=== PATIENT | male | born 1955 | race American Indian/Alaskan Native ===

== ENCOUNTER 2019-02-27 13:43 | Inpatient (IN) | payer MEDICARE ==
--- NOTE | 2019-02-27 14:02 | Emergency Department Report ---
Blank Doc - Documentation Documentation: This is a 63-year-old male that presents with chest pain, SOB, and bilateral l egs swelling. HX of CHF. This initial assessment/diagnostic orders/clinical plan/treatment(s) is/are subject to change based on patient's health status, clinical progression and re- assessment by fellow clinical providers in the ED. Further treatment and workup at subsequent clinical providers discretion. Patient/guardians urged not to elope from the ED as their condition may be serious if not clinically assessed and managed. Initial orders include: 1- Patient sent to [facility] for further evaluation and treatment 2- EKG 3- labs 4- CXR
--- NOTE | 2019-02-27 15:08 | XRay Report ---
CHEST XRAY, 2 VIEWS: History: Chest pain. Findings: There is mild cardiomegaly. A 2-lead pacemaker device is in position. Pulmonary vessels are within normal limits. The lungs are clear and fully expanded. No infiltrate, pleural effusion or pneumothorax. Normal thoracic cage. IMPRESSION: Cardiomegaly.
[2019-02-27 15:24] LABS: Basophils # (Auto) 0.1 K/mm3 (0.0-0.1); Basophils % (Auto) 0.8 % (0.0-1.8); Eosinophils # (Auto) 0.2 K/mm3 (0.0-0.4); Eosinophils % (Auto) 3.4 % (0.0-4.3); Hematocrit 44.3 % (35.5-45.6); Hemoglobin 14.4 gm/dl (11.8-15.2); Lymphocytes # (Auto) 1.5 K/mm3 (1.2-5.4); Lymphocytes % (Auto) 23.8 % (13.4-35.0); Mean Corpuscular HGB Conc 32 % (32-34); Mean Corpuscular Volume 90 fl (84-94); Monocytes # (Auto) 0.5 K/mm3 (0.0-0.8); Monocytes % (Auto) 7.7 % (0.0-7.3); Red Blood Count 4.91 M/mm3 (3.65-5.03)
[2019-02-27 15:28] LABS: Red Cell Distribution Width 20.8 % (13.2-15.2)
[2019-02-27 15:34] LABS: INR 1.2 (0.87-1.13)
[2019-02-27 15:35] LABS: Partial Thromboplastin Time 26.2 Sec. (24.2-36.6)
[2019-02-27 16:00] LABS: Calcium 9.6 mg/dL (8.4-10.2)
[2019-02-27 16:06] LABS: Platelet Count 195 K/mm3 (140-440)
--- NOTE | 2019-02-27 16:22 | Emergency Department Report ---
ED General Adult HPI - General Chief complaint: Dyspnea/Respdistress Stated complaint: SOB/SWELLING OF LEGS Time Seen by Provider: 02/27/19 14:00 Source: patient Mode of arrival: Ambulatory Limitations: No Limitations - History of Present Illness Initial comments: A 63-year-old male with a history of CHF with an ejection fraction of 10%, chronic kidney disease, and obstructive sleep apnea presents with a complaint of shortness of breath. Patient states he's had worsening shortness of breath for the past few days. Patient states that he was last admitted 2 months ago for CHF exacerbation in [place]. Patient states he's been taken off of hospice the rapy regarding his CHF. Patient states he talked to his needle valve operator out of town and told to come here. Patient states that he has been intermittently compliant with his torsemide therapy. Patient denies any chest pain to current time. - Related Data Home Medications Medication Instructions Recorded Confirmed Last Taken Albuterol Sulfate 1.25 mg IH Q4H 02/27/19 02/27/19 Unknown LORazepam [Ativan] 0.5 mg PO QPM 02/27/19 02/27/19 Unknown Metoprolol Succinate [Kapspargo 25 mg PO DAILY 02/27/19 02/27/19 Unknown Sprinkle] Sennosides/Docusate Sodium 1 - 2 each PO BID PRN 02/27/19 02/27/19 Unknown [Docusate Sodium-Senna Tablet] Tamsulosin [Flomax] 0.4 mg PO DAILY 02/27/19 02/27/19 Unknown Temazepam [Restoril] 15 mg PO QHS PRN 02/27/19 02/27/19 Unknown Torsemide [Demadex] 40 mg PO BID 02/27/19 02/27/19 Unknown Trazodone HCl 150 mg PO QHS 02/27/19 02/27/19 Unknown oxyCODONE [roxiCODONE] 2.5 - 5 mg PO Q4HR PRN 02/27/19 02/27/19 Unknown Allergies Allergy/AdvReac Type Severity Reaction Status Date / Time carvedilol AdvReac Unknown Verified 02/27/19 13:47 ED Review of Systems ROS: Stated complaint: SOB/SWELLING OF LEGS Other details as noted in HPI Constitutional: denies: chills, fever Eyes: denies: eye pain, eye discharge, vision change ENT: denies: ear pain, throat pain Respiratory: SOB at rest. denies: cough, shortness of breath, wheezing Cardiovascular: denies: chest pain, palpitations Endocrine: no symptoms reported Gastrointestinal: denies: abdominal pain, nausea, diarrhea Genitourinary: denies: urgency, dysuria Musculoskeletal: denies: back pain, joint swelling, arthralgia Skin: denies: rash, lesions Neurological: denies: headache, weakness, paresthesias Psychiatric: denies: anxiety, depression Hematological/Lymphatic: denies: easy bleeding, easy bruising ED Past Medical Hx - Past Medical History Hx Hypertension: Yes Hx Congestive Heart Failure: Yes Hx COPD: Yes Additional medical history: neuropathy - Surgical History Past Surgical History?: No - Social History Smoking Status: Former Smoker Substance Use Type: None - Medications Home Medications: Home Medications Medication Instructions Recorded Confirmed Last Taken Type Albuterol Sulfate 1.25 mg IH Q4H 02/27/19 02/27/19 Unknown History LORazepam [Ativan] 0.5 mg PO QPM 02/27/19 02/27/19 Unknown History Metoprolol Succinate [Kapspargo 25 mg PO DAILY 02/27/19 02/27/19 Unknown History Sprinkle] Sennosides/Docusate Sodium 1 - 2 each PO BID PRN 02/27/19 02/27/19 Unknown History [Docusate Sodium-Senna Tablet] Tamsulosin [Flomax] 0.4 mg PO DAILY 02/27/19 02/27/19 Unknown History Temazepam [Restoril] 15 mg PO QHS PRN 02/27/19 02/27/19 Unknown History Torsemide [Demadex] 40 mg PO BID 02/27/19 02/27/19 Unknown History Trazodone HCl 150 mg PO QHS 02/27/19 02/27/19 Unknown History oxyCODONE [roxiCODONE] 2.5 - 5 mg PO Q4HR PRN 02/27/19 02/27/19 Unknown History ED Physical Exam - General Limitations: No Limitations General appearance: alert, other (awake; mildly uncomfortable) - Head Head exam: Present: atraumatic, normocephalic - Eye Eye exam: Present: normal appearance - ENT ENT exam: Present: mucous membranes moist - Neck Neck exam: Present: normal inspection - Respiratory Respiratory exam: Present: rales (in bibasilar region). Absent: respiratory distress - Cardiovascular Cardiovascular Exam: Present: regular rate, normal rhythm. Absent: systolic murmur, diastolic murmur, rubs, gallop - GI/Abdominal GI/Abdominal exam: Present: soft, normal bowel sounds - Rectal Rectal exam: Present: deferred - Extremities Exam Extremities exam: Present: normal inspection - Back Exam Back exam: Present: normal inspection - Neurological Exam Neurological exam: Present: alert, oriented X3, CN II-XII intact, normal gait - Psychiatric Psychiatric exam: Present: normal affect, normal mood - Skin Skin exam: Present: warm, dry, intact, normal color. Absent: rash ED Course Vital Signs 02/27/19 02/27/19 02/27/19 13:57 15:24 16:00 Temperature 97.5 F L Pulse Rate 106 H 85 91 H Pulse Rate [ Anterior Bilateral Throughout] Respiratory 16 25 H 23 Rate Respiratory Rate [Anterior Bilateral Throughout] Blood Pressure 120/90 Blood Pressure 125/90 [Left] O2 Sat by Pulse 100 95 Oximetry 02/27/19 02/27/19 02/27/19 17:00 17:55 18:01 Temperature Pulse Rate 96 H 90 Pulse Rate [ Anterior Bilateral Throughout] Respiratory 16 20 20 Rate Respiratory Rate [Anterior Bilateral Throughout] Blood Pressure 137/101 Blood Pressure 146/101 [Left] O2 Sat by Pulse 99 100 98 Oximetry 02/27/19 02/27/19 18:10 18:26 Temperature Pulse Rate Pulse Rate [ 91 H 90 Anterior Bilateral Throughout] Respiratory Rate Respiratory 99 H 20 Rate [Anterior Bilateral Throughout] Blood Pressure Blood Pressure [Left] O2 Sat by Pulse Oximetry ED Medical Decision Making - Lab Data Result diagrams: 02/27/19 14:03 02/27/19 15:26 - EKG Data -: EKG Interpreted by Ak EKG shows normal: sinus rhythm Rate: normal - EKG Data Interpretation: nonspecific ST-T wave aakash, other (NO evidence of STEMI) - Medical Decision Making Patient received albuterol, Lasix and 0.4 nitroglycerin. Patient to be admitted to the hospitalist service for continued management and treatment. - Differential Diagnosis CHF exacerbation; Pneumonia; Arryhtmia; STEMI; NSTEMI Critical care attestation.: If time is entered above; I have spent that time in minutes in the direct care of this critically ill patient, excluding procedure time. ED Disposition Clinical Impression: Acute exacerbation of CHF (congestive heart failure) Disposition: OP ADMIT IP TO THIS HOSP Is pt being admited?: Yes Condition: Fair Referrals: LEO DENISE MD [Primary Care Provider] - 3-5 Days Time of Disposition: 19:46
[2019-02-27] MEDS ORDERED: NITROSTAT SL ONE (17:37)
[2019-02-27] MEDS ORDERED: LASIX IV ONE (17:37)
[2019-02-27] MEDS ORDERED: PROVENTIL IH ONE (17:37)
[2019-02-27] MEDS ORDERED: SODIUM CHLORIDE FLUSH SYRINGE 10 ML IV PRN (20:25)
[2019-02-27] MEDS ORDERED: NITROSTAT SL PRN (20:25)
[2019-02-27] MEDS ORDERED: PROVENTIL IH PRN (20:25)
[2019-02-27] MEDS ORDERED: TYLENOL PO PRN (20:25)
[2019-02-27] MEDS ORDERED: ZOFRAN IV PRN (20:25)
[2019-02-27] MEDS ORDERED: RESTORIL PO PRN (20:30)
[2019-02-27] MEDS ORDERED: PERCOCET 5/325 PO PRN (20:31)
--- NOTE | 2019-02-27 21:16 | History and Physical Report ---
History of Present Illness Date of examination: 02/27/19 Date of admission: 02/27/2019 Chief complaint: Shortness of breath, bilateral lower extremity edema History of present illness: 63-year-old -[place]ine[place] male with history of PEG, systolic heart failure with EF of 10%, CK D, BPH, COPD, HTN who presents to the [facility] ED with complaints of shortness of breath. He states that he is been in [place] for the past 2 weeks. He is originally from [facility] and is here visiting his son. He complains of progressively worsening shortness of breath for the past week. He also noticed that his lower leg swelling has worsened. Patient states that he was admitted approximately 2 months ago at a facility in [facility] and was told that his ejection fraction is 10%. He was given torsemide but admits to being noncompliant with treatment. Denies: fever, n/v/d, chest pain Past History Past Medical History: COPD, heart failure (EF 10%), hypertension, other (neuropathy; PEG ) Past Surgical History: Other (pacemaker placement) Social history: lives with family (visit and from [facility], staying with son in [facility]; former smoker) Family history: no significant family history Medications and Allergies Allergies Allergy/AdvReac Type Severity Reaction Status Date / Time carvedilol AdvReac Unknown Verified 02/27/19 13:47 Home Medications Medication Instructions Recorded Confirmed Last Taken Type Albuterol Sulfate 1.25 mg IH Q4H 02/27/19 02/27/19 Unknown History LORazepam [Ativan] 0.5 mg PO QPM 02/27/19 02/27/19 Unknown History Metoprolol Succinate [Kapspargo 25 mg PO DAILY 02/27/19 02/27/19 Unknown History Sprinkle] Sennosides/Docusate Sodium 1 - 2 each PO BID PRN 02/27/19 02/27/19 Unknown History [Docusate Sodium-Senna Tablet] Tamsulosin [Flomax] 0.4 mg PO DAILY 02/27/19 02/27/19 Unknown History Temazepam [Restoril] 15 mg PO QHS PRN 02/27/19 02/27/19 Unknown History Torsemide [Demadex] 40 mg PO BID 02/27/19 02/27/19 Unknown History Trazodone HCl 150 mg PO QHS 02/27/19 02/27/19 Unknown History oxyCODONE [roxiCODONE] 2.5 - 5 mg PO Q4HR PRN 02/27/19 02/27/19 Unknown History Active Meds: Active Medications Acetaminophen (Tylenol) 650 mg PO Q4H PRN PRN Reason: Pain MILD(1-3)/Fever >100.5/GUEVARA Albuterol (Proventil) 2.5 mg IH Q3HRT PRN PRN Reason: Shortness Of Breath Albuterol/Ipratropium (Duoneb *Not For Prn Use*) 1 ampul IH Q6HRT MOISES Budesonide (Pulmicort) 0.5 mg IH Q12HRT MOISES Docusate Sodium (Colace) 100 mg PO BID MOISES Enoxaparin Sodium (Lovenox) 40 mg SUB-Q QDAY MOISES Furosemide (Lasix) 40 mg IV 0600,1800 MOISES Lorazepam (Ativan) 0.5 mg PO QPM MOISES Metoprolol Succinate (Toprol Xl) 25 mg PO QDAY MOISES Nitroglycerin (Nitrostat) 0.4 mg SL .Q5MIN PRN PRN Reason: Chest Pain Ondansetron HCl (Zofran) 4 mg IV Q8H PRN PRN Reason: Nausea And Vomiting Oxycodone/Acetaminophen (Percocet 5/325) 1 tab PO Q6H PRN PRN Reason: Pain, Moderate (4-6) Sodium Chloride (Sodium Chloride Flush Syringe 10 Ml) 10 ml IV BID MOISES Sodium Chloride (Sodium Chloride Flush Syringe 10 Ml) 10 ml IV PRN PRN PRN Reason: LINE FLUSH Tamsulosin HCl (Flomax) 0.4 mg PO DAILY MOISES Temazepam (Restoril) 15 mg PO QHS PRN PRN Reason: Sleep Review of Systems All systems: negative (viewed and no additional remarkable complaints except as noted below) Cardiovascular: edema (bilateral lower extremity pitting edema), shortness of breath, dyspnea on exertion Respiratory: shortness of breath, dyspnea on exertion Exam - Physical Exam Narrative exam: Physical exam General appearance: Present: No acute distress, alert and oriented 3, older adult -[place]ine[place] male - EENT Eyes: Present: PERRL, EOM intact ENT: hearing intact, normal dentition - Neck Neck: Present: supple, normal ROM - Respiratory Respiratory effort: Non-labored Respiratory: Bibasilar crackles - Cardiovascular Heart rate: 91 (bpm) Rhythm: regular Heart Sounds: Present: S1 & S2. Absent: rub, click - Extremities Extremities: no ischemia, pulses intact, abnormal (bilateral lower extremity edema) - Peripheral Assessment Peripheral Pulses: within normal limits - Abdominal General gastrointestinal: soft, non-tender, normal bowel sounds - Integumentary Integumentary: Present: warm, dry - Musculoskeletal Musculoskeletal: Normal gait, minimal lower extremities -Neurological Neurological: CNII-XII intact - Psychiatric Psychiatric: cooperative - Constitutional Vitals: Temp Pulse Resp BP Pulse Ox 97.5 F L 93 H 19 137/95 98 02/27/19 13:57 02/27/19 19:01 02/27/19 19:01 02/27/19 19:01 02/27/19 18:01 Results - Labs CBC & Chem 7: 02/27/19 14:03 02/27/19 15:26 Labs: Laboratory Last Values WBC 6.2 K/mm3 (4.5-11.0) 02/27/19 14:03 RBC 4.91 M/mm3 (3.65-5.03) 02/27/19 14:03 Hgb 14.4 gm/dl (11.8-15.2) 02/27/19 14:03 Hct 44.3 % (35.5-45.6) 02/27/19 14:03 MCV 90 fl (84-94) 02/27/19 14:03 MCH 29 pg (28-32) 02/27/19 14:03 MCHC 32 % (32-34) 02/27/19 14:03 RDW 20.8 % (13.2-15.2) H 02/27/19 14:03 Plt Count 195 K/mm3 (140-440) 02/27/19 14:03 Lymph % (Auto) 23.8 % (13.4-35.0) 02/27/19 14:03 [place] % (Auto) 7.7 % (0.0-7.3) H 02/27/19 14:03 Eos % (Auto) 3.4 % (0.0-4.3) 02/27/19 14:03 Baso % (Auto) 0.8 % (0.0-1.8) 02/27/19 14:03 Lymph # 1.5 K/mm3 (1.2-5.4) 02/27/19 14:03 [place] # 0.5 K/mm3 (0.0-0.8) 02/27/19 14:03 Eos # 0.2 K/mm3 (0.0-0.4) 02/27/19 14:03 Baso # 0.1 K/mm3 (0.0-0.1) 02/27/19 14:03 Seg Neutrophils % 64.3 % (40.0-70.0) 02/27/19 14:03 Seg Neutrophils # 4.0 K/mm3 (1.8-7.7) 02/27/19 14:03 PT 14.9 Sec. (12.2-14.9) 02/27/19 14:03 INR 1.20 (0.87-1.13) H 02/27/19 14:03 APTT 26.2 Sec. (24.2-36.6) 02/27/19 14:03 Sodium 138 mmol/L (137-145) 02/27/19 15:26 Potassium 5.3 mmol/L (3.6-5.0) H 02/27/19 15:26 Chloride 102.3 mmol/L (98-107) 02/27/19 15:26 Carbon Dioxide 23 mmol/L (22-30) 02/27/19 15:26 18 mmol/L 02/27/19 15:26 BUN 25 mg/dL (9-20) H 02/27/19 15:26 1.4 mg/dL (0.8-1.5) 02/27/19 15:26 Estimated GFR 51 ml/min 02/27/19 15:26 18 % 02/27/19 15:26 Glucose 95 mg/dL (75-100) 02/27/19 15:26 Calcium 9.6 mg/dL (8.4-10.2) 02/27/19 15:26 0.023 ng/mL (0.00-0.029) 02/27/19 16:40 NT-Pro-B Natriuret Pep 24314 pg/mL (0-900) H 02/27/19 15:26 - Imaging and Cardiology EKG: image reviewed (sinus rhythm 91 bpm) Chest x-ray: report reviewed (There is mild cardiomegaly. A 2-lead pacemaker device is in position. ), image reviewed Assessment and Plan Assessment and plan: 63-year-old -[place] male with history of PEG, systolic heart failure with EF of 10%, CK D, BPH, COPD, HTN who is noncompliant with medications who presents to the [facility] ED with complaints of shortness of breath. CXR did not show any acute cardiopulmonary abnormalities. EKG unremarkable for acute ischemic [place] [id number]. Will admit to telemetry. Acute exacerbation of systolic heart failure with ejection fraction 10% Pacemaker in situ COPD CKD 3 ??MARTIN Hyperkalemia Elevated BNP Hypertension BPH Plan: Continue supportive care Continuous telemetry monitoring Cardiology consult IV Lasix 40 mg twice a day Albuterol when necessary Schedule Pulmicort Monitor BP Metoprolol 25 mg daily ASA 81mg Continue Flomax Monitor electrolytes; replete as needed Patient profile hyperkalemic at 5.3, he received IV Lasix 40 mg in ED; will monitor potassium for now no further intervention at this time Monitor renal function Consult nephrology DVT PPX on Lovenox Advance Directives: No VTE prophylaxis?: Chemical Plan of care discussed with patient/family: Yes
[2019-02-27] MEDS: SODIUM CHLORIDE FLUSH SYRINGE 10 ML IV SCH (22:00)
[2019-02-27] MEDS: COLACE PO SCH (22:00)
[2019-02-28] MEDS: DUONEB *Not for PRN Use IH SCH ×4 (01:16→21:18)
[2019-02-28] MEDS: LASIX IV SCH ×2 (06:07→17:07)
[2019-02-28 06:41] LABS: Basophils # (Auto) 0.1 K/mm3 (0.0-0.1); Basophils % (Auto) 1.3 % (0.0-1.8); Eosinophils # (Auto) 0.2 K/mm3 (0.0-0.4); Eosinophils % (Auto) 2.9 % (0.0-4.3); Hematocrit 41.6 % (35.5-45.6); Hemoglobin 13.7 gm/dl (11.8-15.2); Lymphocytes # (Auto) 1.8 K/mm3 (1.2-5.4); Lymphocytes % (Auto) 22.2 % (13.4-35.0); Mean Corpuscular HGB Conc 33 % (32-34); Mean Corpuscular Volume 89 fl (84-94); Monocytes # (Auto) 0.6 K/mm3 (0.0-0.8); Platelet Count 224 K/mm3 (140-440); Red Blood Count 4.67 M/mm3 (3.65-5.03)
[2019-02-28 06:47] LABS: Red Cell Distribution Width 20.9 % (13.2-15.2)
[2019-02-28 07:04] LABS: BUN/Creatinine Ratio 17; Blood Urea Nitrogen 24 mg/dL (9-20); Calcium 9.3 mg/dL (8.4-10.2); Hemolysis Index 8
[2019-02-28] MEDS: PULMICORT IH SCH ×2 (08:51→21:18)
[2019-02-28] MEDS ORDERED: METOPROLOL SUCCINATE 25 MG PO SCH (10:00)
[2019-02-28] MEDS: LOVENOX SUB-Q SCH (10:07)
[2019-02-28] MEDS: SODIUM CHLORIDE FLUSH SYRINGE 10 ML IV SCH (10:08)
[2019-02-28] MEDS: BABY ASPIRIN PO SCH (10:08)
[2019-02-28] MEDS: TOPROL XL PO SCH (10:08)
[2019-02-28] MEDS: FLOMAX PO SCH (10:08)
[2019-02-28] MEDS: COLACE PO SCH ×2 (10:08→23:19)
--- NOTE | 2019-02-28 10:26 | Consultation ---
History of Present Illness Consult date: 02/28/19 Consult reason: congestive heart failure History of present illness: Mr Ramos is a 63-year old male whom is visiting from [place]. Patient gives a h istory of nonischemic cardiomyopathy with an ejection fraction of 10%. He has an indwelling cardiac defibrillator. Patient presents with worsening shortness of breath, admitted with decompensated heart failure. Patient reports he started experiencing low back pain, similar to prior symptoms of acute renal failure therefore he stopped taking his home Torsemide a few days ago. He admits to 10- 15lb weight gain. Patient denies chest pain, denies palpitations and denies AICD discharge. A cardiac consultation has been requested for further management of CHF. Past History Past Medical History: COPD, heart failure (EF 10%), hypertension, other (neuropathy; PEG ) Past Surgical History: Other (AICD) Social history: lives with family (visit and from [facility], staying with son in [facility]; former smoker) Family history: no significant family history Medications and Allergies Allergies Allergy/AdvReac Type Severity Reaction Status Date / Time carvedilol AdvReac Unknown Verified 02/27/19 13:47 Home Medications Medication Instructions Recorded Confirmed Last Taken Type Albuterol Sulfate 1.25 mg IH Q4H 02/27/19 02/27/19 Unknown History LORazepam [Ativan] 0.5 mg PO QPM 02/27/19 02/27/19 Unknown History Metoprolol Succinate [Kapspargo 25 mg PO DAILY 02/27/19 02/27/19 Unknown History Sprinkle] Sennosides/Docusate Sodium 1 - 2 each PO BID PRN 02/27/19 02/27/19 Unknown Hist ory [Docusate Sodium-Senna Tablet] Tamsulosin [Flomax] 0.4 mg PO DAILY 02/27/19 02/27/19 Unknown History Temazepam [Restoril] 15 mg PO QHS PRN 02/27/19 02/27/19 Unknown History Torsemide [Demadex] 40 mg PO BID 02/27/19 02/27/19 Unknown History Trazodone HCl 150 mg PO QHS 02/27/19 02/27/19 Unknown History oxyCODONE [roxiCODONE] 2.5 - 5 mg PO Q4HR PRN 02/27/19 02/27/19 Unknown History Active Meds: Active Medications Acetaminophen (Tylenol) 650 mg PO Q4H PRN PRN Reason: Pain MILD(1-3)/Fever >100.5/GUEVARA Albuterol (Proventil) 2.5 mg IH Q3HRT PRN PRN Reason: Shortness Of Breath Albuterol/Ipratropium (Duoneb *Not For Prn Use*) 1 ampul IH Q6HRT [facility] Last Admin: 02/28/19 08:51 Dose: 1 ampul Documented by: Aspirin (Baby Aspirin) 81 mg PO QDAY [facility] Last Admin: 02/28/19 10:08 Dose: 81 mg Documented by: Budesonide (Pulmicort) 0.5 mg IH Q12HRT [facility]1983 Last Admin: 02/28/19 08:51 Dose: 0.5 mg Documented by: Docusate Sodium (Colace) 100 mg PO BID [facility] Last Admin: 02/28/19 10:08 Dose: 100 mg Documented by: Enoxaparin Sodium (Lovenox) 40 mg SUB-Q QDAY [facility] Last Admin: 02/28/19 10:07 Dose: 40 mg Documented by: Furosemide (Lasix) 40 mg IV 0600,1800 [facility] Last Admin: 02/28/19 06:07 Dose: 40 mg Documented by: Milrinone Lactate/Dextrose (Milrinone-D5w 20 Mg/100 Ml) 20 mg in 100 mls @ 10.53 mls/hr IV TITR [facility]1983 Stop: 03/03/19 08:59 Lorazepam (Ativan) 0.5 mg PO QPM [facility] Metoprolol Succinate (Toprol Xl) 25 mg PO QDAY [facility] Last Admin: 02/28/19 10:08 Dose: 25 mg Documented by: Nitroglycerin (Nitrostat) 0.4 mg SL .Q5MIN PRN PRN Reason: Chest Pain Ondansetron HCl (Zofran) 4 mg IV Q8H PRN PRN Reason: Nausea And Vomiting Oxycodone/Acetaminophen (Percocet 5/325) 1 tab PO Q6H PRN PRN Reason: Pain, Moderate (4-6) Sodium Chloride (Sodium Chloride Flush Syringe 10 Ml) 10 ml IV BID [facility] Last Admin: 02/28/19 10:08 Dose: 10 ml Documented by: Sodium Chloride (Sodium Chloride Flush Syringe 10 Ml) 10 ml IV PRN PRN PRN Reason: LINE FLUSH Tamsulosin HCl (Flomax) 0.4 mg PO DAILY MOISES Last Admin: 02/28/19 10:08 Dose: 0.4 mg Documented by: Temazepam (Restoril) 15 mg PO QHS PRN PRN Reason: Sleep Physical Examination Vital Signs Temp Pulse Resp BP Pulse Ox 97.5 F L 106 H 16 125/90 100 02/27/19 13:57 02/27/19 13:57 02/27/19 13:57 02/27/19 13:57 02/27/19 13:57 General appearance: no acute distress HEENT: Positive: PERRL Cardiac: Positive: Reg Rate and Rhythm Lungs: Positive: Decreased Breath Sounds Neuro: Positive: Grossly Intact Results 02/28/19 05:56 02/28/19 05:56 Coagulation 02/27/19 Range/Units 14:03 PT 14.9 (12.2-14.9) Sec. INR 1.20 H (0.87-1.13) APTT 26.2 (24.2-36.6) Sec. CBC 02/27/19 02/28/19 Range/Units 14:03 05:56 WBC 6.2 8.0 (4.5-11.0) K/mm3 RBC 4.91 4.67 (3.65-5.03) M/mm3 Hgb 14.4 13.7 (11.8-15.2) gm/dl Hct 44.3 41.6 (35.5-45.6) % Plt Count 195 224 (140-440) K/mm3 Lymph # 1.5 1.8 (1.2-5.4) K/mm3 [place] # 0.5 0.6 (0.0-0.8) K/mm3 Eos # 0.2 0.2 (0.0-0.4) K/mm3 Baso # 0.1 0.1 (0.0-0.1) K/mm3 Comprehensive Metabolic Panel 02/27/19 02/28/19 Range/Units 15:26 05:56 Sodium 138 139 (137-145) mmol/L Potassium 5.3 H 4.1 D (3.6-5.0) mmol/L Chloride 102.3 102.4 (98-107) mmol/L Carbon Dioxide 23 19 L (22-30) mmol/L BUN 25 H 24 H (9-20) mg/dL Creatinine 1.4 1.4 (0.8-1.5) mg/dL Glucose 95 112 H (75-100) mg/dL Calcium 9.6 9.3 (8.4-10.2) mg/dL Assessment and Plan Acute on chronic systolic heart failure EF 10% per patient noncompliant with medications Presence of AICD Hypertension Recommend: Aggressive medical therapy for systolic heart failure. We will initiate a trial of IV milrinone therapy for 48-72 hrs.
[2019-02-28] MEDS: MILRINONE-D5W 20 MG/100 ML 20 MG/100 ML BAG IV SCH ×2 (10:36→17:07)
--- NOTE | 2019-02-28 11:51 | Consultation ---
History of Present Illness - History of Present Illness Thank you for the consultation ! Patient was evaluated today My assessment and plan are as follows Chronic kidney disease: Renal function stable creatinine is currently around 1.4 Intake and output management was discussed with patient Patient will benefit from a formal dietitian evaluation Hyperkalemia appears to be doing better Mild metabolic acidosis changes diet plan discussed with patient At some point we'll consider giving sodium bicarbonate with caution Patient will be prone to cardiorenal syndrome due to history of severe congestive heart failure ejection fraction in the range of 10% Patient has been educated to comply with treatment recommendation Avoid any form of nephrotoxic medication avoid hypotension, if possible avoid any form of PATRIZIA inhibitor or angiotensin receptor izaiah unless patient is going to follow-up with cardiology very closely Adequately counseled and educated regarding all the renal related issues Upon discharge will need to follow-up appointment office Had a detailed discussion with patient about the plan of care from renal stand point. All questions were answered labs and pertinent imaging findings were explained to the patient and simple Moroccan. Prognosis: Guarded We'll continue to follow and make recommendation from renal standpoint Thank you for the consultation. History of presenting illness; Patient is 63-year-old the male who has been admitted here with congestive heart failure flare, he used to be in hospice physician fraction is around 10%, patient's creatinine is currently 1.4 potassium was 5.4 yesterday which is normalized bicarbonate is currently around 19 which was 23 yesterday Patient denies having any voiding problems no form in the urine Past medical history significant for: Severe congestive heart failure ejection fraction 10% Hypertension Chronic kidney disease? Current allergies: Reviewed Home medication/present medication: Reviewed Social history: Reviewed from the current chart Family history: Reviewed from the current chart Review of system is positive for; shortness of breath, was enrolled in hospice All other review of systems were negative Physical examination Vitals: Reviewed from this admission Gen.: No acute distress HEENT: Normocephalic/atraumatic skull oral mucosa moist minimal pallor no icterus or uremic order Neck: Supple without any thyromegaly nodular mass or JVD Chest: Bilateral basilar crackles Heart: Regular rate and rhythm S1 and S2 heard no S3-S4 no pericardial rub Abdomen: Soft nontender no guarding rigidity rebound organomegaly no suprapubic masses, no CVA tenderness no renal bruit Back: No CVA tenderness Derm: No petechial rashes dry skin Extremity: Pulses palpable no peripheral cyanosis, 1+ edema dry skin Neurological: Alert awake follows commands Psychiatric: No agitation and aggression Labs and x-rays: Were reviewed from this admission Past History Past Medical History: COPD, heart failure (EF 10%), hypertension, other (neuropathy; PEG ) Past Surgical History: Other (AICD) Social history: lives with family (visit and from [facility], staying with son in [facility]; former smoker) Family history: no significant family history Medications and Allergies Allergies Allergy/AdvReac Type Severity Reaction Status Date / Time carvedilol AdvReac Unknown Verified 02/27/19 13:47 Home Medications Medication Instructions Recorded Confirmed Last Taken Type Albuterol Sulfate 1.25 mg IH Q4H 02/27/19 02/27/19 Unknown History LORazepam [Ativan] 0.5 mg PO QPM 02/27/19 02/27/19 Unknown History Metoprolol Succinate [Kapspargo 25 mg PO DAILY 02/27/19 02/27/19 Unknown History Sprinkle] Sennosides/Docusate Sodium 1 - 2 each PO BID PRN 02/27/19 02/27/19 Unknown History [Docusate Sodium-Senna Tablet] Tamsulosin [Flomax] 0.4 mg PO DAILY 02/27/19 02/27/19 Unknown History Temazepam [Restoril] 15 mg PO QHS PRN 02/27/19 02/27/19 Unknown History Torsemide [Demadex] 40 mg PO BID 02/27/19 02/27/19 Unknown History Trazodone HCl 150 mg PO QHS 02/27/19 02/27/19 Unknown History oxyCODONE [roxiCODONE] 2.5 - 5 mg PO Q4HR PRN 02/27/19 02/27/19 Unknown History Active Meds: Active Medications Acetaminophen (Tylenol) 650 mg PO Q4H PRN PRN Reason: Pain MILD(1-3)/Fever >100.5/GUEVARA Albuterol (Proventil) 2.5 mg IH Q3HRT PRN PRN Reason: Shortness Of Breath Albuterol/Ipratropium (Duoneb *Not For Prn Use*) 1 ampul IH Q6HRT MOISES Last Admin: 02/28/19 08:51 Dose: 1 ampul Documented by: Aspirin (Baby Aspirin) 81 mg PO QDAY [facility] Last Admin: 02/28/19 10:08 Dose: 81 mg Documented by: Budesonide (Pulmicort) 0.5 mg IH Q12HRT [facility] Last Admin: 02/28/19 08:51 Dose: 0.5 mg Documented by: Docusate Sodium (Colace) 100 mg PO BID [facility] Last Admin: 02/28/19 10:08 Dose: 100 mg Documented by: Enoxaparin Sodium (Lovenox) 40 mg SUB-Q QDAY [facility] Last Admin: 02/28/19 10:07 Dose: 40 mg Documented by: Furosemide (Lasix) 40 mg IV 0600,1800 [facility] Last Admin: 02/28/19 06:07 Dose: 40 mg Documented by: Milrinone Lactate/Dextrose (Milrinone-D5w 20 Mg/100 Ml) 20 mg in 100 mls @ 10.53 mls/hr IV TITR [facility] Stop: 03/03/19 08:59 Last Admin: 02/28/19 10:36 Dose: 0.375 mcg/kg/min, 10.53 mls/hr Documented by: Lorazepam (Ativan) 0.5 mg PO QPM [facility] Metoprolol Succinate (Toprol Xl) 25 mg PO QDAY [facility] Last Admin: 02/28/19 10:08 Dose: 25 mg Documented by: Nitroglycerin (Nitrostat) 0.4 mg SL .Q5MIN PRN PRN Reason: Chest Pain Ondansetron HCl (Zofran) 4 mg IV Q8H PRN PRN Reason: Nausea And Vomiting Oxycodone/Acetaminophen (Percocet 5/325) 1 tab PO Q6H PRN PRN Reason: Pain, Moderate (4-6) Sodium Chloride (Sodium Chloride Flush Syringe 10 Ml) 10 ml IV BID [facility] Last Admin: 02/28/19 10:08 Dose: 10 ml Documented by: Sodium Chloride (Sodium Chloride Flush Syringe 10 Ml) 10 ml IV PRN PRN PRN Reason: LINE FLUSH Tamsulosin HCl (Flomax) 0.4 mg PO DAILY [facility] Last Admin: 02/28/19 10:08 Dose: 0.4 mg Documented by: Temazepam (Restoril) 15 mg PO QHS PRN PRN Reason: Sleep Exam - Vital Signs Vital signs: Vital Signs Temp Pulse Resp BP Pulse Ox 97.5 F L 106 H 16 125/90 100 02/27/19 13:57 02/27/19 13:57 02/27/19 13:57 02/27/19 13:57 02/27/19 13:57 Results - Lab Results 02/28/19 05:56 02/28/19 05:56 Most recent lab results Calcium 9.3 mg/dL (8.4-10.2) 02/28/19 05:56
--- NOTE | 2019-02-28 13:58 | Progress Note ---
Assessment and Plan Assessment and plan: 63-year-old -[place] Citizen male with history of PEG, systolic heart failure with EF of 10%, CK D, BPH, COPD, HTN who is noncompliant with medications who presents to the [facility] ED with complaints of shortness of breath. CXR did not show any acute cardiopulmonary abnormalities. EKG unremarkable for acute ischemic [place] [id number]. Will admit to telemetry. Acute exacerbation of systolic heart failure with ejection fraction 10% Pacemaker in situ COPD Elevated Creatinine : MARTIN versus CKD 3 Hyperkalemia Elevated BNP Hypertension BPH Plan: Continue supportive care Continuous telemetry monitoring Cardiology following. patient started on Milrinone IV Lasix 40 mg twice a day Albuterol when necessary Schedule Pulmicort Monitor BP Metoprolol 25 mg daily ASA 81mg Continue Flomax Monitor electrolytes; replete as needed Monitor renal function Nephrology following DVT PPX on Lovenox History Interval history: Shortness of breath, improved No chest pain Hospitalist Physical - Physical exam Narrative exam: Gen: Not in acute distress, lying in bed, HEENT: Normocephalic, atraumatic Neck: supple, no JVD Heart: Bilateral basal crackles, no wheeze Lungs: Clear, no crackles, no wheeze Abd: soft, non tender, non distended, normal BS Ext: Bilateral lower leg edema, no clubbing, no cyanosis, Neuro: Awake,alert, oriented x 3, moves all ext, non focal Psych:Normal mood - Constitutional Vitals: Temp Pulse Resp BP Pulse Ox 97.9 F 91 H 18 127/77 95 02/28/19 12:33 02/28/19 12:33 02/28/19 12:33 02/28/19 12:33 02/28/19 12:33 General appearance: Present: no acute distress Results - Labs CBC & Chem 7: 02/28/19 05:56 02/28/19 05:56 Labs: Laboratory Last Values WBC 8.0 K/mm3 (4.5-11.0) 02/28/19 05:56 RBC 4.67 M/mm3 (3.65-5.03) 02/28/19 05:56 Hgb 13.7 gm/dl (11.8-15.2) 02/28/19 05:56 Hct 41.6 % (35.5-45.6) 02/28/19 05:56 MCV 89 fl (84-94) 02/28/19 05:56 MCH 29 pg (28-32) 02/28/19 05:56 MCHC 33 % (32-34) 02/28/19 05:56 RDW 20.9 % (13.2-15.2) H 02/28/19 05:56 Plt Count 224 K/mm3 (140-440) 02/28/19 05:56 Lymph % (Auto) 22.2 % (13.4-35.0) 02/28/19 05:56 Hart % (Auto) 8.0 % (0.0-7.3) H 02/28/19 05:56 Eos % (Auto) 2.9 % (0.0-4.3) 02/28/19 05:56 Baso % (Auto) 1.3 % (0.0-1.8) 02/28/19 05:56 Lymph # 1.8 K/mm3 (1.2-5.4) 02/28/19 05:56 Hart # 0.6 K/mm3 (0.0-0.8) 02/28/19 05:56 Eos # 0.2 K/mm3 (0.0-0.4) 02/28/19 05:56 Baso # 0.1 K/mm3 (0.0-0.1) 02/28/19 05:56 Seg Neutrophils % 65.6 % (40.0-70.0) 02/28/19 05:56 Seg Neutrophils # 5.2 K/mm3 (1.8-7.7) 02/28/19 05:56 PT 14.9 Sec. (12.2-14.9) 02/27/19 14:03 INR 1.20 (0.87-1.13) H 02/27/19 14:03 APTT 26.2 Sec. (24.2-36.6) 02/27/19 14:03 Sodium 139 mmol/L (137-145) 02/28/19 05:56 Potassium 4.1 mmol/L (3.6-5.0) D 02/28/19 05:56 Chloride 102.4 mmol/L (98-107) 02/28/19 05:56 Carbon Dioxide 19 mmol/L (22-30) L 02/28/19 05:56 22 mmol/L 02/28/19 05:56 BUN 24 mg/dL (9-20) H 02/28/19 05:56 1.4 mg/dL (0.8-1.5) 02/28/19 05:56 Estimated GFR > 60 ml/min 02/28/19 05:56 17 % 02/28/19 05:56 Glucose 112 mg/dL (75-100) H 02/28/19 05:56 Calcium 9.3 mg/dL (8.4-10.2) 02/28/19 05:56 0.023 ng/mL (0.00-0.029) 02/27/19 16:40 NT-Pro-B Natriuret Pep 52453 pg/mL (0-900) H 02/27/19 15:26 Active Medications - Current Medications Current Medications: Generic Name Dose Route Start Last Admin Trade Name Freq PRN Reason Stop Dose Admin Acetaminophen 650 mg 02/27/19 20:25 Tylenol PO Q4H PRN Pain MILD(1-3)/Fever >100.5/GUEVARA Albuterol 2.5 mg 02/27/19 20:25 Proventil IH Q3HRT PRN Shortness Of Breath Albuterol/Ipratropium 1 ampul 02/28/19 02:00 02/28/19 08:51 Duoneb *Not For Prn Use* IH 1 ampul Q6HRT MOISES Administration Aspirin 81 mg 02/28/19 10:00 02/28/19 10:08 Baby Aspirin PO 81 mg QDAY MOISES Administration Budesonide 0.5 mg 02/28/19 08:00 02/28/19 08:51 Pulmicort IH 0.5 mg Q12HRT MOISES Administration Docusate Sodium 100 mg 02/27/19 22:00 02/28/19 10:08 Colace PO 100 mg BID MOISES Administration Enoxaparin Sodium 40 mg 02/28/19 10:00 02/28/19 10:07 Lovenox SUB-Q 40 mg QDAY MOISES Administration Furosemide 40 mg 02/28/19 06:00 02/28/19 06:07 Lasix IV 40 mg 0600,1800 MOISES Administration Milrinone Lactate/Dextrose 20 mg in 100 mls @ 10.53 mls/hr 02/28/19 09:00 02/28/19 10:36 Milrinone-D5w 20 Mg/100 Ml IV 03/03/19 08:59 0.375 mcg/kg/min TITR MOISES 10.53 mls/hr Administration 0.375 MCG/KG/MIN Lorazepam 0.5 mg 02/28/19 18:00 Ativan PO QPM MOISES Metoprolol Succinate 25 mg 02/28/19 10:00 02/28/19 10:08 Toprol Xl PO 25 mg QDAY MOISES Administration Nitroglycerin 0.4 mg 02/27/19 20:25 Nitrostat SL .Q5MIN PRN Chest Pain Ondansetron HCl 4 mg 02/27/19 20:25 Zofran IV Q8H PRN Nausea And Vomiting Oxycodone/Acetaminophen 1 tab 02/27/19 20:31 Percocet 5/325 PO Q6H PRN Pain, Moderate (4-6) Sodium Chloride 10 ml 02/27/19 22:00 02/28/19 10:08 Sodium Chloride Flush Syringe 10 Ml IV 10 ml BID MOISES Administration Sodium Chloride 10 ml 02/27/19 20:25 Sodium Chloride Flush Syringe 10 Ml IV PRN PRN LINE FLUSH Tamsulosin HCl 0.4 mg 02/28/19 10:00 02/28/19 10:08 Flomax PO 0.4 mg DAILY MOISES Administration Temazepam 15 mg 02/27/19 20:30 Restoril PO QHS PRN Sleep
[2019-02-28] MEDS: ATIVAN PO SCH ×2 (17:07→23:19)
[2019-02-28] MEDS ORDERED: DESYREL PO SCH (22:00)
[2019-03-01] MEDS: SODIUM CHLORIDE FLUSH SYRINGE 10 ML IV SCH ×2 (01:32→12:45)
[2019-03-01 05:46] LABS: Hematocrit 37.1 % (35.5-45.6); Hemoglobin 12.2 gm/dl (11.8-15.2); Mean Corpuscular HGB Conc 33 % (32-34); Mean Corpuscular Volume 90 fl (84-94); Platelet Count 211 K/mm3 (140-440); Red Blood Count 4.13 M/mm3 (3.65-5.03)
[2019-03-01 05:48] LABS: Red Cell Distribution Width 20.7 % (13.2-15.2)
[2019-03-01 05:59] LABS: BUN/Creatinine Ratio 14; Blood Urea Nitrogen 19 mg/dL (9-20); Calcium 8.5 mg/dL (8.4-10.2); Hemolysis Index 10
[2019-03-01] MEDS: LASIX IV SCH (05:59)
[2019-03-01] MEDS: MILRINONE-D5W 20 MG/100 ML 20 MG/100 ML BAG IV SCH (06:01)
[2019-03-01] MEDS: PULMICORT IH SCH ×2 (09:22→09:26)
[2019-03-01] MEDS: DUONEB *Not for PRN Use IH SCH ×2 (09:22→09:26)
--- NOTE | 2019-03-01 09:40 | Progress Note ---
Hospitalist Physical - Constitutional Vitals: Temp Pulse Resp BP Pulse Ox 98.5 F 94 H 18 107/59 100 03/01/19 05:05 03/01/19 09:32 03/01/19 09:32 03/01/19 05:05 03/01/19 05:05 General appearance: Present: no acute distress Results - Labs CBC & Chem 7: 03/01/19 04:54 03/01/19 04:54 Labs: Laboratory Last Values WBC 6.3 K/mm3 (4.5-11.0) 03/01/19 04:54 RBC 4.13 M/mm3 (3.65-5.03) 03/01/19 04:54 Hgb 12.2 gm/dl (11.8-15.2) 03/01/19 04:54 Hct 37.1 % (35.5-45.6) 03/01/19 04:54 MCV 90 fl (84-94) 03/01/19 04:54 MCH 29 pg (28-32) 03/01/19 04:54 MCHC 33 % (32-34) 03/01/19 04:54 RDW 20.7 % (13.2-15.2) H 03/01/19 04:54 Plt Count 211 K/mm3 (140-440) 03/01/19 04:54 Lymph % (Auto) 22.2 % (13.4-35.0) 02/28/19 05:56 Millard % (Auto) 8.0 % (0.0-7.3) H 02/28/19 05:56 Eos % (Auto) 2.9 % (0.0-4.3) 02/28/19 05:56 Baso % (Auto) 1.3 % (0.0-1.8) 02/28/19 05:56 Lymph # 1.8 K/mm3 (1.2-5.4) 02/28/19 05:56 Millard # 0.6 K/mm3 (0.0-0.8) 02/28/19 05:56 Eos # 0.2 K/mm3 (0.0-0.4) 02/28/19 05:56 Baso # 0.1 K/mm3 (0.0-0.1) 02/28/19 05:56 Seg Neutrophils % 65.6 % (40.0-70.0) 02/28/19 05:56 Seg Neutrophils # 5.2 K/mm3 (1.8-7.7) 02/28/19 05:56 PT 14.9 Sec. (12.2-14.9) 02/27/19 14:03 INR 1.20 (0.87-1.13) H 02/27/19 14:03 APTT 26.2 Sec. (24.2-36.6) 02/27/19 14:03 Sodium 140 mmol/L (137-145) 03/01/19 04:54 Potassium 3.3 mmol/L (3.6-5.0) L 03/01/19 04:54 Chloride 100.8 mmol/L (98-107) 03/01/19 04:54 Carbon Dioxide 25 mmol/L (22-30) 03/01/19 04:54 18 mmol/L 03/01/19 04:54 BUN 19 mg/dL (9-20) 03/01/19 04:54 1.4 mg/dL (0.8-1.5) 03/01/19 04:54 Estimated GFR > 60 ml/min 03/01/19 04:54 14 % 03/01/19 04:54 Glucose 111 mg/dL (75-100) H 03/01/19 04:54 Calcium 8.5 mg/dL (8.4-10.2) 03/01/19 04:54 Magnesium 1.90 mg/dL (1.7-2.3) 03/01/19 04:54 0.023 ng/mL (0.00-0.029) 02/27/19 16:40 NT-Pro-B Natriuret Pep 91120 pg/mL (0-900) H 02/27/19 15:26 TSH 0.638 mlU/mL (0.270-4.200) 03/01/19 04:54 Active Medications - Current Medications Current Medications: Generic Name Dose Route Start Last Admin Trade Name Freq PRN Reason Stop Dose Admin Acetaminophen 650 mg 02/27/19 20:25 Tylenol PO Q4H PRN Pain MILD(1-3)/Fever >100.5/GUEVARA Albuterol 2.5 mg 02/27/19 20:25 Proventil IH Q3HRT PRN Shortness Of Breath Albuterol/Ipratropium 1 ampul 03/01/19 08:00 03/01/19 09:26 Duoneb *Not For Prn Use* IH 1 ampul BIDRT MOISES Administration Aspirin 81 mg 02/28/19 10:00 02/28/19 10:08 Baby Aspirin PO 81 mg QDAY MOISES Administration Budesonide 0.5 mg 02/28/19 08:00 03/01/19 09:26 Pulmicort IH 0.5 mg Q12HRT MOISES Administration Docusate Sodium 100 mg 02/27/19 22:00 02/28/19 23:19 Colace PO 100 mg BID MOISES Administration Enoxaparin Sodium 40 mg 02/28/19 10:00 02/28/19 10:07 Lovenox SUB-Q 40 mg QDAY MOISES Administration Furosemide 40 mg 02/28/19 06:00 03/01/19 05:59 Lasix IV 40 mg 0600,1800 MOISES Administration Milrinone Lactate/Dextrose 20 mg in 100 mls @ 10.53 mls/hr 02/28/19 09:00 03/01/19 06:01 Milrinone-D5w 20 Mg/100 Ml IV 03/03/19 08:59 0.375 mcg/kg/min TITR MOISES 10.53 mls/hr Administration 0.375 MCG/KG/MIN Lorazepam 0.5 mg 02/28/19 18:00 02/28/19 23:19 Ativan PO 0.5 mg QPM MOISES Administration Metoprolol Succinate 25 mg 02/28/19 10:00 02/28/19 10:08 Toprol Xl PO 25 mg QDAY MOISES Administration Nitroglycerin 0.4 mg 02/27/19 20:25 Nitrostat SL .Q5MIN PRN Chest Pain Ondansetron HCl 4 mg 02/27/19 20:25 Zofran IV Q8H PRN Nausea And Vomiting Oxycodone/Acetaminophen 1 tab 02/27/19 20:31 02/28/19 23:20 Percocet 5/325 PO 1 tab Q6H PRN Administration Pain, Moderate (4-6) Potassium Chloride 40 meq 03/01/19 08:00 K-Dur PO 03/01/19 14:01 Q6H MOISES Sodium Chloride 10 ml 02/27/19 22:00 03/01/19 01:32 Sodium Chloride Flush Syringe 10 Ml IV Not Given BID MOISES Sodium Chloride 10 ml 02/27/19 20:25 Sodium Chloride Flush Syringe 10 Ml IV PRN PRN LINE FLUSH Tamsulosin HCl 0.4 mg 02/28/19 10:00 02/28/19 10:08 Flomax PO 0.4 mg DAILY MOISES Administration Temazepam 15 mg 02/27/19 20:30 02/28/19 23:19 Restoril PO 15 mg QHS PRN Administration Sleep Trazodone HCl 150 mg 02/28/19 22:00 02/28/19 23:18 Desyrel PO 150 mg QHS MOISES Administration
[2019-03-01] MEDS: LOVENOX SUB-Q SCH (09:43)
[2019-03-01] MEDS: FLOMAX PO SCH (09:43)
[2019-03-01] MEDS: TOPROL XL PO SCH (09:43)
[2019-03-01] MEDS: BABY ASPIRIN PO SCH (09:43)
[2019-03-01] MEDS: K-DUR PO SCH ×2 (09:43→15:15)
[2019-03-01] MEDS: COLACE PO SCH (09:43)
[2019-03-01 09:46] VITALS: BP 100/54
--- NOTE | 2019-03-01 10:36 | Progress Note ---
Subjective Interval history: Patient was seen today for follow-up on multiple renal related issues Events of this hospitalization noted Patient does understand that he has to follow a proper diet plan Patient denies having any chest pain pressure or shortness of breath Vitals labs intake output medications were reviewed Social history: Reviewed Allergies: Reviewed Family history: Reviewed Physical examination HEENT: Oral mucosa moist no pallor or icterus Neck: Supple no JVD Chest: Clear to auscultation anteriorly CVS: Regular rate and rhythm S1 and S2 heard Abdomen: Soft nontender no suprapubic masses no organomegaly appreciable Extremity: Dry skin less than 1+ peripheral edema Musculoskeletal: No joint effusion noted in knees and ankle Neurological: Alert awake Dermatology: No petechial rashes Psychiatry: No evidence of any agitation and aggression noted Assessment and plan; Renal function stable, patient is at risk for cardiorenal syndrome he has been adequately educated and counseled when he goes back to [place] he'll follow-up with his occupational therapy assistant he has an appointment to see a rail layer there At this time he will primarily need to monitor his intake and output management following a proper diet plan and monitoring his renal function closely Hypokalemia: Mild current potassium was around 3.3 which was 5.3 upon arrival patient can be considered for low-dose Aldactone in the setting of congestive heart failure Overall he's stable from renal standpoint will sign off the case please call if needed Congestive heart failure chest x-ray shows evidence of congestive changes with mild cardiomegaly ejection fraction is about 10% Patient was adequately counseled and educated regarding multiple renal related issues Pertinent lab findings were discussed with patient and patient does exhibit good understanding of renal issues. We'll continue to follow and make recommendation from renal standpoint Objective - Vital Signs Vital signs: Vital Signs - 12hr 02/28/19 03/01/19 03/01/19 23:48 05:05 09:13 Temperature 97.8 F 98.5 F 98.1 F Pulse Rate 54 L 87 79 Pulse Rate [ Anterior Bilateral Throughout] Respiratory 18 18 16 Rate Respiratory Rate [Anterior Bilateral Throughout] Blood Pressure 98/56 107/59 100/54 O2 Sat by Pulse 93 100 95 Oximetry 03/01/19 03/01/19 09:24 09:32 Temperature Pulse Rate Pulse Rate [ 90 94 H Anterior Bilateral Throughout] Respiratory Rate Respiratory 18 18 Rate [Anterior Bilateral Throughout] Blood Pressure O2 Sat by Pulse Oximetry - Lab 03/01/19 04:54 03/01/19 04:54 Most recent lab results Calcium 8.5 mg/dL (8.4-10.2) 03/01/19 04:54 Magnesium 1.90 mg/dL (1.7-2.3) 03/01/19 04:54 Medications & Allergies - Medications Allergies/Adverse Reactions: Allergies carvedilol Adverse Reaction (Verified 02/27/19 13:47) Unknown Home Medications: Home Medications Medication Instructions Recorded Confirmed Last Taken Type Albuterol Sulfate 1.25 mg IH Q4H 02/27/19 02/27/19 Unknown History LORazepam [Ativan] 0.5 mg PO QPM 02/27/19 02/27/19 Unknown History Metoprolol Succinate [Kapspargo 25 mg PO DAILY 02/27/19 02/27/19 Unknown History Sprinkle] Sennosides/Docusate Sodium 1 - 2 each PO BID PRN 02/27/19 02/27/19 Unknown Hist ory [Docusate Sodium-Senna Tablet] Tamsulosin [Flomax] 0.4 mg PO DAILY 02/27/19 02/27/19 Unknown History Temazepam [Restoril] 15 mg PO QHS PRN 02/27/19 02/27/19 Unknown History Torsemide [Demadex] 40 mg PO BID 02/27/19 02/27/19 Unknown History Trazodone HCl 150 mg PO QHS 02/27/19 02/27/19 Unknown History oxyCODONE [roxiCODONE] 2.5 - 5 mg PO Q4HR PRN 02/27/19 02/27/19 Unknown History Active Medications: Generic Name Dose Route Start Last Admin Trade Name Freq PRN Reason Stop Dose Admin Acetaminophen 650 mg 02/27/19 20:25 Tylenol PO Q4H PRN Pain MILD(1-3)/Fever >100.5/GUEVARA Albuterol 2.5 mg 02/27/19 20:25 Proventil IH Q3HRT PRN Shortness Of Breath Albuterol/Ipratropium 1 ampul 03/01/19 08:00 03/01/19 09:26 Duoneb *Not For Prn Use* IH 1 ampul BIDRT MOISES Administration Aspirin 81 mg 02/28/19 10:00 03/01/19 09:43 Baby Aspirin PO 81 mg QDAY MOISES Administration Budesonide 0.5 mg 02/28/19 08:00 03/01/19 09:26 Pulmicort IH 0.5 mg Q12HRT MOISES Administration Docusate Sodium 100 mg 02/27/19 22:00 03/01/19 09:43 Colace PO 100 mg BID MOISES Administration Enoxaparin Sodium 40 mg 02/28/19 10:00 03/01/19 09:43 Lovenox SUB-Q 40 mg QDAY MOISES Administration Furosemide 40 mg 02/28/19 06:00 03/01/19 05:59 Lasix IV 40 mg 0600,1800 [facility] Administration Milrinone Lactate/Dextrose 20 mg in 100 mls @ 10.53 mls/hr 02/28/19 09:00 03/01/19 06:01 Milrinone-D5w 20 Mg/100 Ml IV 03/03/19 08:59 0.375 mcg/kg/min TITR MOISES 10.53 mls/hr Administration 0.375 MCG/KG/MIN Lorazepam 0.5 mg 02/28/19 18:00 02/28/19 23:19 Ativan PO 0.5 mg QPM MOISES Administration Metoprolol Succinate 25 mg 02/28/19 10:00 03/01/19 09:43 Toprol Xl PO 25 mg QDAY MOISES Administration Nitroglycerin 0.4 mg 02/27/19 20:25 Nitrostat SL .Q5MIN PRN Chest Pain Ondansetron HCl 4 mg 02/27/19 20:25 Zofran IV Q8H PRN Nausea And Vomiting Oxycodone/Acetaminophen 1 tab 02/27/19 20:31 02/28/19 23:20 Percocet 5/325 PO 1 tab Q6H PRN Administration Pain, Moderate (4-6) Potassium Chloride 40 meq 03/01/19 08:00 03/01/19 09:43 K-Dur PO 03/01/19 14:01 40 meq Q6H MOISES Administration Sodium Chloride 10 ml 02/27/19 22:00 03/01/19 01:32 Sodium Chloride Flush Syringe 10 Ml IV Not Given BID MOISES Sodium Chloride 10 ml 02/27/19 20:25 Sodium Chloride Flush Syringe 10 Ml IV PRN PRN LINE FLUSH Tamsulosin HCl 0.4 mg 02/28/19 10:00 03/01/19 09:43 Flomax PO 0.4 mg DAILY MOISES Administration Temazepam 15 mg 02/27/19 20:30 02/28/19 23:19 Restoril PO 15 mg QHS PRN Administration Sleep Trazodone HCl 150 mg 02/28/19 22:00 02/28/19 23:18 Desyrel PO 150 mg QHS MOISES Administration
--- NOTE | 2019-03-01 11:33 | Progress Note ---
Assessment and Plan Non-ischemic cardiomyopathy (follows in [place]) Acute on chronic systolic heart failure secondary to non-compliance Patient stopped torsemide 4 days ago with resulting 13-15 lbs weight gain Warm on exam today Dual chamber AICD Recommendations: Patient feels good and wants to go home May stop milrinone and discharge home on torsemide 40 mg po bid for 3 days then daily after that Patient given contact info to follow-up in our office Subjective Date of service: 03/01/19 Principal diagnosis: CHF Interval history: Patient is doing well His breathing and edema have improved Objective Vital Signs Temp Pulse Pulse Resp Resp BP Pulse Ox 03/01/19 09:32 94 H 18 03/01/19 09:24 90 18 03/01/19 09:13 98.1 F 79 16 100/54 95 03/01/19 05:05 98.5 F 87 18 107/59 100 02/28/19 23:48 97.8 F 54 L 18 98/56 93 02/28/19 22:00 22 96 02/28/19 21:21 99 H 20 02/28/19 20:00 98.5 F 96 H 18 119/66 98 02/28/19 16:23 98.3 F 53 L 20 128/75 97 02/28/19 15:21 93 H 18 02/28/19 15:12 92 H 18 02/28/19 13:00 96 H 02/28/19 12:33 97.9 F 91 H 18 127/77 95 - Physical Examination HEENT: Positive: PERRL Neck: Positive: neck supple Cardiac: Positive: Reg Rate and Rhythm Lungs: Positive: Normal Exam Neuro: Positive: Grossly Intact - Labs and Meds CBC 03/01/19 Range/Units 04:54 WBC 6.3 (4.5-11.0) K/mm3 RBC 4.13 (3.65-5.03) M/mm3 Hgb 12.2 (11.8-15.2) gm/dl Hct 37.1 (35.5-45.6) % Plt Count 211 (140-440) K/mm3 Comprehensive Metabolic Panel 03/01/19 Range/Units 04:54 Sodium 140 (137-145) mmol/L Potassium 3.3 L (3.6-5.0) mmol/L Chloride 100.8 (98-107) mmol/L Carbon Dioxide 25 (22-30) mmol/L BUN 19 (9-20) mg/dL Creatinine 1.4 (0.8-1.5) mg/dL Glucose 111 H (75-100) mg/dL Calcium 8.5 (8.4-10.2) mg/dL - Imaging and Cardiology EKG: image reviewed (sinus rhythm 91 bpm)
--- NOTE | 2019-03-01 12:47 | Discharge Summary ---
Providers - Providers Date of Admission: 02/27/19 20:25 Date of discharge: 03/01/19 Attending physician: VERNELL ANDERSON 02/27/19 20:25 Consult to Physician [CONS] Routine Comment: Consulting Provider: RADHA VALENCIA Physician Instructions: Reason For Exam: chf EF10% 02/27/19 21:39 Consult to Physician [CONS] Routine Comment: Consulting Provider: HOLLEY YAÑEZ Physician Instructions: Reason For Exam: CKD; ??MARTIN [facility] Condition: [facility] Hospital course: Patient is 63-year-old -[place] male with history of PEG, systolic heart failure with EF of 10%, chronic kidney disease, BPH, COPD, hypertensiom who is noncompliant with medications. He presented to the [facility] ED with complaints of shortness of breath. CXR revealed cardiomegaly. EKG unremarkable for acute [place] [id number]. He was dagnosed with CHF exacerbation, started on iv Lasix and admitted. cardiology was consulted, he was put on Milrinone drip, improved and subsequently discharged home. Total time spent on discharge, 32 mins Acute exacerbation of chronic systolic heart failure with ejection fraction 10% Pacemaker in situ COPD CKD Hyperkalemia Hypertension BPH Plan: He was evaluated by cardiology and put on Milrinone drip IV Lasix 40 mg twice a day Albuterol when necessary Schedule Pulmicort Metoprolol 25 mg daily ASA 81mg Continue Flomax Monitor electrolytes; replete as needed Monitor renal function Nephrology following during stay Disposition: DC-01 TO HOME OR SELFCARE - Discharge Diagnoses (1) Acute on chronic systolic (congestive) heart failure Status: Acute (2) HTN (hypertension) Status: Acute (3) Chronic kidney disease Status: Acute (4) Chronic kidney disease (CKD) Status: Acute (5) COPD (chronic obstructive pulmonary disease) Status: Acute (6) Hyperkalemia Status: Acute Core Measure Documentation - Palliative Care Palliative Care/ Comfort Measures: Not Applicable - Core Measures Any of the following diagnoses?: heart failure - Heart Failure Discharge Requirements PATRIZIA/ARB for LVSD if EF <40%: No Reason for no PATRIZIA/ARB: Hyperkalemia Beta izaiah at discharge: Yes Exam - Constitutional Vitals: Temp Pulse Resp BP Pulse Ox 98.1 F 94 H 18 100/54 95 03/01/19 09:13 03/01/19 09:32 03/01/19 09:32 03/01/19 09:13 03/01/19 09:13 Plan Activity: no restrictions Diet: low fat, low cholesterol, low salt Additional Instructions: 1.Follow up with PCP or [facility] in 3-5 days. 2.Follow up with Dr. Guido, Cardiology in 3-5 days Follow up with: LEO DENISE MD [Primary Care Provider] - 3-5 Days
[2019-03-01 15:41] LABS: Bilirubin,Urine NEG (Negative); Blood,Urine NEG (Negative); Color,Urine Yellow (Yellow); Protein,Urine <15 mg/dL mg/dL (Negative); Urobilinogen,Urine < 2.0 mg/dL (<2.0)
[2019-03-01 16:12] LABS: Creatinine,Urine 156.1 mg/dL (0.1-20.0)
[2019-03-01] MEDS: ATIVAN PO SCH (17:38)
== END 2019-03-01 17:49 | disposition home or self-care (01) | DRG 291 ==
LOC: ED 13:43 → 4A 20:25
PROVIDERS: ADMIT Internal Medicine; ATTEND Internal Medicine
DX: I13.0 Hypertensive heart and chronic kidney disease with heart failure and stage 1 through stage 4 chronic kidney disease, or unspecified chronic kidney disease (principal); I50.23 Acute on chronic systolic (congestive) heart failure; E87.2 Acidosis; I42.9 Cardiomyopathy, unspecified; N40.0 Benign prostatic hyperplasia without lower urinary tract symptoms; E87.6 Hypokalemia; N18.3 Chronic kidney disease, stage 3 (moderate); G62.9 Polyneuropathy, unspecified; J44.9 Chronic obstructive pulmonary disease, unspecified; E87.5 Hyperkalemia; G47.33 Obstructive sleep apnea (adult) (pediatric); Z79.51 Long term (current) use of inhaled steroids; Z79.899 Other long term (current) drug therapy; Z88.8 Allergy status to other drugs, medicaments and biological substances; Z87.891 Personal history of nicotine dependence; Z95.810 Presence of automatic (implantable) cardiac defibrillator
CPT/HCPCS: 36415; 71046; 80048; 81001; 82570; 83735; 83880; 84156; 84300; 84443; 84484; 85025; 85027; 85610; 85730; 93005; 93010; 94640; G0378; J1650; J1940; J2260